=== PATIENT | female | born 1950 | race Caucasian/White ===

== ENCOUNTER 2017-02-23 21:14 | Inpatient (IN) | payer MEDICARE, OTHER ==
[2017-02-23] MEDS ORDERED: PHARMACY COMMUNICATION ORDER MC NR (22:30)
--- NOTE | 2017-02-23 22:42 | PDOC CONSULTATION ---
History of Present Illness Admission Date/PCP: 02/23/17 21:14 GANGA TICODHRUVJil Patient complains of: Lower abdominal pain History of Present Illness: YENI IBRAHIM is a 66 year old female With multiple abdominal surgeries for recurrent incisional hernias the last one about 15 years ago with mesh. Patient has noticed in the last several days persistent burning type of abdominal pain in the lower left abdomen. She denies any nausea and vomiting. In fact she has been eating well. She feels slightly distended and she has been experiencing normal bowel movements. Her last bowel movement being earlier this morning. She is still passing gas. Patient was recently diagnosed with right arm melanoma. Has not had definitive treatment yet. Past Medical History Cardiac Medical History: Reports: None Pulmonary Medical History: Reports: None Endocrine Medical History: Reports: Diabetes Mellitus Type 2 Skin History Note: Recently diagnosed melanoma. Of the right upper arm. Past Surgical History Past Surgical History: Reports: Cholecystectomy, Other - At least 4 abdominal hernia repairs last one with mesh. Social History Smoking Status: Current Every Day Smoker Frequency of Alcohol Use: None Family History Parental Family History Reviewed: No Children Family History Reviewed: No Sibling(s) Family History Reviewed.: No Physical Exam Vital Signs: Temp Pulse Resp BP Pulse Ox 98.8 F 103 H 20 142/80 H 97 02/23/17 21:45 02/23/17 21:45 02/23/17 21:45 02/23/17 21:45 02/23/17 21:45 Intake & Output 02/22/17 02/23/17 02/24/17 06:59 06:59 06:59 Weight 122.2 kg General appearance: PRESENT: no acute distress, cooperative Neck exam: PRESENT: other - Nontender with no palpable abnormal masses Respiratory exam: PRESENT: clear to auscultation freedom Cardiovascular exam: PRESENT: RRR GI/Abdominal exam: PRESENT: other - morbidly obese. Difficult to tell whether she is distended. Upper abdomen is soft. There is firmness and fullness in the left lower abdomen, nonreducible. There is tenderness but no peritoneal signs. There is no erythema and there is no induration. I do not appreciate a hernia on the right lower abdomen although the exam is very difficult due to her body habitus. She has a midline abdominal scar that is well-healed. Neurological exam: PRESENT: alert, altered, awake, oriented to person, oriented to place, oriented to time, oriented to situation Psychiatric exam: PRESENT: appropriate affect Skin exam: PRESENT: normal color, warm Results Status: Imported from PACS Assessment & Plan - Diagnosis (1) Incisional hernia, incarcerated Is this a current diagnosis for this admission?: YesPlan: Patient has had symptoms for [address] scan demonstrates no evidence of intestinal compromise but there is evidence of partial small bowel obstruction related with her incarcerated incisional hernia. There are 2 incisional hernias on either side of her mesh. She does not have obstructive symptoms however. We will plan to make her n.p.o., NG tube decompression, IV fluids, preoperative workup with labs and EKG. In light of the complexity of her recurrent incisional hernias, will need to consider transfer to a tertiary care hospital for repair.
[2017-02-23 22:59] LABS: ABSOLUTE BASOPHILS # (AUTO) 0.1 10^3/uL (0.0-0.2); ABSOLUTE EOSINOPHILS # (AUTO) 0.1 10^3/uL (0.0-0.6); ABSOLUTE LYMPHOCYTES (AUTO) 1.7 10^3/uL (0.5-4.7); ABSOLUTE MONOCYTES (AUTO) 1.1 10^3/uL (0.1-1.4); ABSOLUTE NEUT (AUTO) 9.4 10^3/uL (1.7-8.2); BASOPHILS % (AUTO) 0.5 % (0-2); EOSINOPHILS % (AUTO) 0.7 % (0-6); HEMATOCRIT 39.1 % (36.0-47.0); HEMOGLOBIN 13.1 g/dL (12.0-15.5); HGB HCT DIFFERENCE 0.2; LYMPHOCYTES % (AUTO) 13.5 % (13-45); MEAN CORPUSCULAR HEMOGLOBIN 29.6 pg (27.0-33.4); MEAN CORPUSCULAR HGB CONC 33.6 g/dL (32.0-36.0); MEAN CORPUSCULAR VOLUME 88 fl (80-97); MONOCYTES % (AUTO) 9.2 % (3-13); RED BLOOD COUNT 4.43 10^6/uL (3.72-5.28); RED CELL DISTRIBUTION WIDTH 12.8 % (11.5-14.0); SEGMENTED NEUTROPHILS % (AUTO) 76.1 % (42-78); WHITE BLOOD COUNT 12.3 10^3/uL (4.0-10.5)
[2017-02-23 23:07] LABS: ALANINE AMINOTRANSFERASE 35 U/L (9-52); ALBUMIN 3.3 g/dL (3.5-5.0); ALKALINE PHOSPHATASE 87 U/L (38-126); ANION GAP 11 (5-19); ASPARTATE AMINO TRANSFERASE 20 U/L (14-36); BILIRUBIN,DIRECT 0.4 mg/dL (0.0-0.4); BILIRUBIN,TOTAL 1.1 mg/dL (0.2-1.3); BLOOD UREA NITROGEN 24 mg/dL (7-20); CALCIUM 8.8 mg/dL (8.4-10.2); CARBON DIOXIDE 25 mmol/L (22-30); CHLORIDE 100 mmol/L (98-107); CREATININE RESULT 0.89 mg/dL (0.52-1.25); GLUCOSE 160 mg/dL (75-110); POTASSIUM 3.8 mmol/L (3.6-5.0); SODIUM 136.1 mmol/L (137-145); TOTAL PROTEIN 6.1 g/dL (6.3-8.2)
--- NOTE | 2017-02-24 00:12 | EKG REPORT ---
SEVERITY:- ABNORMAL ECG - SINUS RHYTHM PROBABLE LEFT ATRIAL ABNORMALITY LAD, CONSIDER LAFB OR INFERIOR INFARCT ANTERIOR INFARCT, AGE INDETERMINATE : Confirmed by: Helena Vazquez 24-Feb-2017 00:11:58
[2017-02-24] MEDS: NORMAL SALINE 1000 ML 1,000 ML IV PRN ×2 (01:44→13:48)
--- NOTE | 2017-02-24 01:44 | RADIOLOGY REPORT (SQ) ---
EXAM DESCRIPTION: KUB/ABDOMEN (SINGLE VIEW) COMPLETED DATE/TIME: 02/24/2017 12:43 am REASON FOR STUDY: Check Placement of NG Tube COMPARISON: None. NUMBER OF VIEWS: One view. TECHNIQUE: Supine radiographic image of the abdomen acquired. LIMITATIONS: None. FINDINGS: BOWEL GAS PATTERN: 5.3 cm diameter likely small bowel dilation of the mid abdomen consiste nt with CT from 1 day ago. CALCIFICATIONS: No suspicious calcifications. SOFT TISSUES: No gross mass or suggestion of organomegaly. HARDWARE: NG tube tip appears adequate with its tip overlying the left upper abdominal quadrant/ stom ach and proximal port at the level of the gastroesophageal junction ; consider 4 cm advancement. BONES: No acute fracture. No worrisome bone lesions. OTHER: Small left basilar atelectasis or scar. IMPRESSION: NG tube tip appears adequate with its tip overlying the left upper abdominal quadrant/ s tomach and proximal port at the level of the gastroesophageal junction ; consider 4 cm advancement. Moderate small bowel dilation/obstruction pattern persists. TECHNICAL DOCUMENTATION: JOB ID: [id number] [employer]- All Rights Reserved
[2017-02-24] MEDS: CEFAZOLIN 1 GM/D5W RTU 1 GM/50 ML RTUPB IV SCH ×3 (02:19→19:38)
[2017-02-24 04:59] LABS: HEMOGLOBIN 13.1 g/dL (12.0-15.5); HGB HCT DIFFERENCE -0.7; MEAN CORPUSCULAR HEMOGLOBIN 29.1 pg (27.0-33.4); MEAN CORPUSCULAR HGB CONC 32.9 g/dL (32.0-36.0); MEAN CORPUSCULAR VOLUME 88 fl (80-97); RED BLOOD COUNT 4.52 10^6/uL (3.72-5.28); RED CELL DISTRIBUTION WIDTH 12.9 % (11.5-14.0); WHITE BLOOD COUNT 12.8 10^3/uL (4.0-10.5)
[2017-02-24 05:15] LABS: ANION GAP 12 (5-19); BLOOD UREA NITROGEN 23 mg/dL (7-20); CALCIUM 8.7 mg/dL (8.4-10.2); CARBON DIOXIDE 26 mmol/L (22-30); CHLORIDE 101 mmol/L (98-107); CREATININE RESULT 0.93 mg/dL (0.52-1.25); GLUCOSE 151 mg/dL (75-110); SODIUM 139.4 mmol/L (137-145)
--- NOTE | 2017-02-24 08:02 | RADIOLOGY REPORT (SQ) ---
EXAM DESCRIPTION: ABDOMEN 2 VIEWS COMPLETED DATE/TIME: 02/24/2017 7:31 am REASON FOR STUDY: f/u psbo COMPARISON: CT, 02/23/2017. CR, upper abdomen, 02/24/2017. NUMBER OF VIEWS: Two views. TECHNIQUE: Supine and erect/decubitus radiographic images of the abdomen acquired. LIMITATIONS: None. FINDINGS: FREE AIR: None. No abnormal gas collections. LUNG BASES: Clear. BOWEL GAS PATTERN: Moderate small bowel dilation measures up to 6.5 cm in the right paracentral abdom en, moderate stacking and air-fluid levels of the small bowel, and intraluminal contrast within a nor mal caliber colon presumably administered only from the CT examination 1 day prior consistent with pa rtial small bowel obstruction in this patient with known ventral hernia. CALCIFICATIONS: No suspicious calcifications. SOFT TISSUES: No gross mass or suggestion of organomegaly. HARDWARE: Left paracentral clips. Adequate appearing nasogastric tube. BONES: No acute fracture. No worrisome bone lesions. OTHER: No other significant finding. IMPRESSION: Partial small bowel obstruction pattern. NG tube. TECHNICAL DOCUMENTATION: JOB ID: [id number]- All Rights Reserved
--- NOTE | 2017-02-24 08:36 | PDOC H&P ---
History of Present Illness Admission Date/PCP: 02/23/17 21:14 GANGA BLANC History of Present Illness: YENI IBRAHIM is a 66 year old female known to my practice who presented to the office yesterday with complain of left lower quadrant abdominal pain that started several days prior to her presentation. She denied any nausea or vomiting. No diarrhea or constipation. No significant similar symptoms in recent time. She was treated for Helicobacter pylori in the past. Her initial examination was significant for LLQ tenderness with some degree of focal guarding. Her CBC with differential revealed leukocytosis and concern for possible diverticulitis. she was started on oral Augmentin empiric coverage with request for abdominal / pelvic CT scan that revealed multiple hernia and suggested partial small bowel obstruction. In view of findings she was advised hospitalization for further evaluation and management. Since admission, she was seen in consultation by surgicalist and has been managed conservatively with bowel decompression and NPO status. In view of her recurrent hernia around a prior large incisional hernia, bilateral and other comorbidities including recently diagnosed right arm melanoma pending definitive treatment, it is advised that she should be transfer to tertiary center for surgical intervention. Past Medical History Cardiac Medical History: Reports: None Pulmonary Medical History: Reports: None Endocrine Medical History: Reports: Diabetes Mellitus Type 2 Past Surgical History Past Surgical History: Reports: Cholecystectomy, Other - At least 4 abdominal hernia repairs last one with mesh. Social History Smoking Status: Current Every Day Smoker Frequency of Alcohol Use: None Hx Recreational Drug Use: No Family History Parental Family History Reviewed: Yes Children Family History Reviewed: Yes Sibling(s) Family History Reviewed.: Yes Medication/Allergy Allergies/Adverse Reactions: No Known Allergies Allergy (Unverified 02/24/17 01:21) Review of Systems Constitutional: ABSENT: chills, fever(s), headache(s), weight gain, weight loss Eyes: ABSENT: visual disturbances Ears: ABSENT: hearing changes Nose, Mouth, and Throat: ABSENT: as per HPI, headache(s), mouth pain, sore throat, vertigo, other Cardiovascular: ABSENT: chest pain, dyspnea on exertion, edema, orthropnea, palpitations Gastrointestinal: PRESENT: abdominal pain. ABSENT: as per HPI, bloating, coffee ground emesis, constipation, diarrhea, dysphagia, heartburn, hematemesis , hematochezia, melena, nausea, vomiting, other Genitourinary: ABSENT: dysuria, hematuria Musculoskeletal: ABSENT: joint swelling Integumentary: PRESENT: lesions - right arm excisional biopsy site of recently diagnosed melanoma lesion Neurological: ABSENT: abnormal gait, abnormal speech, confusion, dizziness, focal weakness, syncope Psychiatric: ABSENT: anxiety, depression, homidical ideation, suicidal ideation Endocrine: ABSENT: cold intolerance, heat intolerance, menstrual abnormalities, polydipsia, polyuria Hematologic/Lymphatic: ABSENT: easy bleeding, easy bruising, lymphadenopathy Allergic/Immunologic: ABSENT: seasonal rhinorrhea Physical Exam Vital Signs: Temp Pulse Resp BP Pulse Ox 98.2 F 97 20 126/75 H 91 L 02/24/17 05:00 02/24/17 07:00 02/24/17 05:00 02/24/17 05:00 02/24/17 05:00 Intake & Output 02/23/17 02/24/17 02/25/17 06:59 06:59 06:59 Intake Total 50 Output Total 650 Balance -600 Weight 122.2 kg General appearance: PRESENT: no acute distress - with NG tube in situ, morbidly obese Head exam: PRESENT: atraumatic, normocephalic Eye exam: PRESENT: conjunctiva pink, EOMI, PERRLA. ABSENT: scleral icterus Ear exam: PRESENT: normal external ear exam Mouth exam: PRESENT: moist, neck supple, tongue midline, other - NG tube in situ Throat exam: ABSENT: post pharyngeal erythema, tonsillar erythema, tonsillar exudate, tonsillogmegaly, other Neck exam: PRESENT: full ROM. ABSENT: carotid bruit, JVD, lymphadenopathy, thyromegaly Respiratory exam: PRESENT: clear to auscultation freedom Cardiovascular exam: PRESENT: RRR. ABSENT: diastolic murmur, rubs, systolic murmur Pulses: PRESENT: normal dorsalis pedis pul, +2 pedal pulses bilateral Vascular exam: PRESENT: normal capillary refill GI/Abdominal exam: PRESENT: hernia. ABSENT: ascites, diminished bowel sounds, distended, firm, guarding, hyperactive bowel sounds, hypoactive bowel sounds, mass, David's sign, normal bowel sounds, organolmegaly, rebound, rigid, soft, tenderness, other Rectal exam: PRESENT: deferred Extremities exam: ABSENT: pedal edema Musculoskeletal exam: PRESENT: deformity - related to joint involvement with arthritis Neurological exam: PRESENT: alert, awake, oriented to person, oriented to place , oriented to time, oriented to situation, CN II-XII grossly intact. ABSENT: motor sensory deficit Psychiatric exam: PRESENT: appropriate affect, normal mood. ABSENT: homicidal ideation, suicidal ideation Skin exam: PRESENT: dry, intact, warm, other - healing site of right arm excisional biopsy. ABSENT: cyanosis, rash Results Laboratory Results: 02/24/17 04:29 02/24/17 04:29 02/23/17 02/23/17 02/24/17 22:38 22:38 04:29 WBC 12.3 H 12.8 H RBC 4.43 4.52 Hgb 13.1 13.1 Hct 39.1 40.0 MCV 88 88 MCH 29.6 29.1 MCHC 33.6 32.9 RDW 12.8 12.9 Plt Count 223 244 Seg Neutrophils % 76.1 Lymphocytes % 13.5 Monocytes % 9.2 Eosinophils % 0.7 Basophils % 0.5 Absolute Neutrophils 9.4 H Absolute Lymphocytes 1.7 Absolute Monocytes 1.1 Absolute Eosinophils 0.1 Absolute Basophils 0.1 Sodium 136.1 L Potassium 3.8 Chloride 100 Carbon Dioxide 25 Anion Gap 11 BUN 24 H Creatinine 0.89 Est GFR ( Amer) > 60 Est GFR (Non-Af Amer) > 60 Glucose 160 H Calcium 8.8 Total Bilirubin 1.1 AST 20 ALT 35 Alkaline Phosphatase 87 Total Protein 6.1 L Albumin 3.3 L 02/24/17 04:29 WBC RBC Hgb Hct MCV MCH MCHC RDW Plt Count Seg Neutrophils % Lymphocytes % Monocytes % Eosinophils % Basophils % Absolute Neutrophils Absolute Lymphocytes Absolute Monocytes Absolute Eosinophils Absolute Basophils Sodium 139.4 Potassium 4.0 Chloride 101 Carbon Dioxide 26 Anion Gap 12 BUN 23 H Creatinine 0.93 Est GFR ( Amer) > 60 Est GFR (Non-Af Amer) > 60 Glucose 151 H Calcium 8.7 Total Bilirubin AST ALT Alkaline Phosphatase Total Protein Albumin Impressions: KUB X-Ray 02/23/17 22:21 IMPRESSION: NG tube tip appears adequate with its tip overlying the left upper abdominal quadrant/ stomach and proximal port at the level of the gastroesophageal junction ; consider 4 cm advancement. Moderate small bowel dilation/obstruction pattern persists. Abdomen X-Ray 02/24/17 06:00 IMPRESSION: Partial small bowel obstruction pattern. NG tube. Assessment & Plan - Diagnosis (1) Incisional hernia, incarcerated Is this a current diagnosis for this admission?: YesPlan: Continue conservative management with efforts at transfer to tertiary center. (2) Partial small bowel obstruction Is this a current diagnosis for this admission?: YesPlan: Continue conservative management with efforts at transfer to tertiary center. (3) Malignant melanoma Qualifiers: Melanoma location: upper extremity including shoulder Laterality: right Qualified Code(s): C43.61 - Malignant melanoma of right upper limb , including shoulder Is this a current diagnosis for this admission?: YesPlan: See admitting attending physician orders. (4) HTN (hypertension) Qualifiers: Hypertension type: essential hypertension Qualified Code(s): I10 - Essential (primary) hypertension Is this a current diagnosis for this admission?: YesPlan: See admitting attending physician orders. (5) HLD (hyperlipidemia) Qualifiers: Hyperlipidemia type: pure hypercholesterolemia Qualified Code(s): E78.00 - Pure hypercholesterolemia, unspecified; E78.0 - Pure hypercholesterolemia Is this a current diagnosis for this admission?: YesPlan: See admitting attending physician orders. (6) COPD (chronic obstructive pulmonary disease) Qualifiers: COPD type: unspecified COPD Qualified Code(s): J44.9 - Chronic obstructive pulmonary disease, unspecified Is this a current diagnosis for this admission?: YesPlan: See admitting attending physician orders. (7) Diabetes mellitus type 2 in obese Is this a current diagnosis for this admission?: YesPlan: See admitting attending physician orders. (8) PAUL (obstructive sleep apnea) Is this a current diagnosis for this admission?: YesPlan: See admitting attending physician orders. (9) Morbid obesity with BMI of 45.0-49.9, adult Is this a current diagnosis for this admission?: YesPlan: See admitting attending physician orders. - Time Time Spent: 50 to 70 Minutes Medications reviewed and adjusted accordingly: Yes Anticipated discharge: Tertiary Hospital Within: Other - Inpatient Certification Post Hospital Care: D/C or Transfer Summary - Plan Summary Plan Summary: Continue conservative management with efforts at transfer to tertiary center.
[2017-02-24] MEDS ORDERED: ENOXAPARIN SODIUM INJ 40 MG/0.4 ML DISP.SYRIN SUBCUT SCH (10:00)
--- NOTE | 2017-02-24 10:12 | PROGRESS NOTE E ---
Progress Note NAME: YENI IBRAHIM : 1950 AGE: 66Y DATE: 02/24/2017 ROOM: 415 SUBJECTIVE: The patient's abdominal pains appear to have subsided. The NG drainage is only about 150 mL since last night. The abdomen is soft and practically nontender. ASSESSMENT AND PLAN: Unfortunately, this is the fourth recurrence of her hernia in this morbidly obese patient. CAT scan was reviewed with Dr. Rodriguez and we both agreed that the best place for this patient will be in a tertiary care facility. I discussed it with her medical attending, Dr. Aquino, who will make arrangements for the patient to be transferred to [facility]. DICTATING PHYSICIAN: CARLOS STONE M.D. [id number] HARSHALY#: [id number] ID: [id number] JOB#: [id number] ACCT: [id number] cc: >
--- NOTE | 2017-02-24 13:08 | PDOC TRANSFER SUMMARY ---
General Admission Date/PCP: 02/23/17 21:14 GANGA BLANC Admission Date: 02/23/17 Transfer Date: 02/24/17 Accepting Facility: [facility] Accepting Physician: Dr. Esteban Resuscitation Status: Full Code - Transfer Diagnosis (1) Incisional hernia, incarcerated Is this a current diagnosis for this admission?: Yes (2) Partial small bowel obstruction Is this a current diagnosis for this admission?: Yes (3) Malignant melanoma Is this a current diagnosis for this admission?: Yes (4) HTN (hypertension) Is this a current diagnosis for this admission?: Yes (5) HLD (hyperlipidemia) Is this a current diagnosis for this admission?: Yes (6) COPD (chronic obstructive pulmonary disease) Is this a current diagnosis for this admission?: Yes (7) Diabetes mellitus type 2 in obese Is this a current diagnosis for this admission?: Yes (8) PAUL (obstructive sleep apnea) Is this a current diagnosis for this admission?: Yes (9) Morbid obesity with BMI of 45.0-49.9, adult Is this a current diagnosis for this admission?: Yes - Transfer Medications Home Medications: Amox Tr/Potassium Clavulanate [Augmentin 875-125 mg Tablet] 1 tab PO Q12 Aspirin [Aspirin EC] 81 mg PO DAILY 02/24/17 Atorvastatin Calcium [Lipitor 80 mg Tablet] 80 mg PO DAILY 02/24/17 Benzonatate [Tessalon Perle 100 mg Capsule] 100 mg PO TID 02/24/17 Cholecalciferol (Vitamin D3) [Vitamin D3] 8,000 units PO DAILY 02/24/17 Cyanocobalamin (Vitamin B-12) [B-12] 500 mcg PO DAILY 02/24/17 Gabapentin [Neurontin 300 mg Capsule] 300 mg PO Q8 02/24/17 Guaifenesin/Codeine Phosphate [Codeine-Guaifen 10-100 mg/5 ml] 10 ml PO Q4HP PRN 02/24/17 Hydrochlorothiazide 25 mg PO DAILY 02/24/17 Insulin Glargine,Hum.rec.anlog [Lantus Solostar] 36 units SUBCUT QHS 02/24/17 Lisinopril [Prinivil 5 mg Tablet] 5 mg PO DAILY 02/24/17 Loratadine [Claritin 10 mg Tablet] 10 mg PO QAM 02/24/17 Montelukast Sodium [Singulair 10 mg Tablet] 10 mg PO QHS 02/24/17 [place]-3 Fatty Acids/Fish Oil [Fish Oil 1,000 mg Capsule] 1,000 mg PO DAILY 02/24 Sitagliptin Phos/Metformin HCl [Janumet 50-1,000 mg Tablet] 1 tab PO BID Tiotropium Hammond [Spiriva Handihaler 18 mcg/dose (30 Dose)] 1 cap IH DAILY Umeclidinium Brm/Vilanterol Tr [Anoro Ellipta 62.5-25 Mcg INH] 1 puff IH DAILY 02/24/17 Vitamin E (Dl, Acetate) [Vitamin E 400 Unit Capsule] 400 units PO DAILY Transfer Medications: Current Medications Atorvastatin Calcium (Lipitor 20 Mg Tablet) 20 mg NG QHS [facility] Stop: 03/26/17 21:59 Enoxaparin Sodium (Lovenox Inj 40 Mg/0.4 Ml Disp.Syrin) 40 mg SUBCUT DAILY MARIA R Stop: 03/26/17 09:59 Last Admin: 02/24/17 10:03 Dose: 40 mg Cefazolin Sodium/Dextrose (Ancef Rtu 1 Gm/D5w 50 Ml Premix Bag) 1 gm in 50 mls @ 100 mls/hr IV Q8A MARIA R Stop: 03/03/17 01:59 Last Admin: 02/24/17 10:03 Dose: 50 ml Sodium Chloride (Nacl 0.9% 1000 Ml Iv Soln) 1,000 mls @ 120 mls/hr IV CONTINUOUS PRN PRN Reason: THIS MED IS NOT "PRN" Stop: 03/25/17 22:22 Last Admin: 02/24/17 01:44 Dose: 1,000 ml Insulin Glargine (Lantus Insulin Inj 300 Unit/3 Ml Pen) 36 unit SUBCUT QHS [facility] Stop: 03/26/17 21:59 Lansoprazole (Prevacid 30 Mg Odt Tablet) 30 mg NG QHS [facility] Stop: 03/26/17 21:59 Loratadine (Claritin 10 Mg Tablet) 10 mg NG QHS [facility] Stop: 03/26/17 21:59 Pharmacy Profile Note (Medication Communication Order) 1 each .NOTICE NR Stop: 03/25/17 22:29 - Allergies Allergies/Adverse Reactions: No Known Allergies Allergy (Unverified 02/24/17 01:21) - Diet/Activity Discharge Diet: Other (Comments) - NPO Hospital Course Hospital Course: Patient was admitted for abdominal pain and CT Abdomen and Pelvis with contrast confirmed partial small bowel obstruction in incarcerated hernia, prior bilateral ventral incisional hernias. She was seen in consultation by surgicalist team with recommendation for tertiary transfer. Patient has been accepted to Dr Esteban's service. Also, there is issue of right arm melanoma that need further definitive surgical intervention. Please see accompanying H&P and radiographic imaging for further information. Physical Exam Vital Signs: Temp Pulse Resp BP Pulse Ox 98.2 F 98 16 129/75 H 95 02/24/17 08:35 02/24/17 08:35 02/24/17 08:35 02/24/17 08:35 02/24/17 08:35 Intake & Output 02/23/17 02/24/17 02/25/17 06:59 06:59 06:59 Intake Total 50 Output Total 650 Balance -600 Weight 122.2 kg General appearance: PRESENT: no acute distress - with NG tube in situ, morbidly obese Head exam: PRESENT: atraumatic, normocephalic Eye exam: PRESENT: conjunctiva pink, EOMI, PERRLA. ABSENT: scleral icterus Ear exam: PRESENT: normal external ear exam Mouth exam: PRESENT: moist, neck supple, tongue midline, other - NG tube in situ Throat exam: ABSENT: post pharyngeal erythema, tonsillar erythema, tonsillar exudate, tonsillogmegaly, other Neck exam: PRESENT: full ROM. ABSENT: carotid bruit, JVD, lymphadenopathy, thyromegaly Respiratory exam: PRESENT: clear to auscultation freedom Cardiovascular exam: PRESENT: RRR. ABSENT: diastolic murmur, rubs, systolic murmur Pulses: PRESENT: normal dorsalis pedis pul, +2 pedal pulses bilateral Vascular exam: PRESENT: normal capillary refill GI/Abdominal exam: PRESENT: hernia. ABSENT: ascites, diminished bowel sounds, distended, firm, guarding, hyperactive bowel sounds, hypoactive bowel sounds, mass, David's sign, normal bowel sounds, organomegaly, rebound, rigid, soft, tenderness, other Rectal exam: PRESENT: deferred Extremities exam: ABSENT: pedal edema Musculoskeletal exam: PRESENT: deformity - related to joint involvement with arthritis Neurological exam: PRESENT: alert, awake, oriented to person, oriented to place , oriented to time, oriented to situation, CN II-XII grossly intact. ABSENT: motor sensory deficit Psychiatric exam: PRESENT: appropriate affect, normal mood. ABSENT: homicidal ideation, suicidal ideation Skin exam: PRESENT: dry, intact, warm, other - healing site of right arm excisional biopsy. ABSENT: cyanosis, rash Results Laboratory Results: 02/24/17 04:29 02/24/17 04:29 02/23/17 02/23/17 02/24/17 22:38 22:38 04:29 WBC 12.3 H 12.8 H RBC 4.43 4.52 Hgb 13.1 13.1 Hct 39.1 40.0 MCV 88 88 MCH 29.6 29.1 MCHC 33.6 32.9 RDW 12.8 12.9 Plt Count 223 244 Seg Neutrophils % 76.1 Lymphocytes % 13.5 Monocytes % 9.2 Eosinophils % 0.7 Basophils % 0.5 Absolute Neutrophils 9.4 H Absolute Lymphocytes 1.7 Absolute Monocytes 1.1 Absolute Eosinophils 0.1 Absolute Basophils 0.1 Sodium 136.1 L Potassium 3.8 Chloride 100 Carbon Dioxide 25 Anion Gap 11 BUN 24 H Creatinine 0.89 Est GFR ( Amer) > 60 Est GFR (Non-Af Amer) > 60 Glucose 160 H Calcium 8.8 Total Bilirubin 1.1 AST 20 ALT 35 Alkaline Phosphatase 87 Total Protein 6.1 L Albumin 3.3 L 02/24/17 04:29 WBC RBC Hgb Hct MCV MCH MCHC RDW Plt Count Seg Neutrophils % Lymphocytes % Monocytes % Eosinophils % Basophils % Absolute Neutrophils Absolute Lymphocytes Absolute Monocytes Absolute Eosinophils Absolute Basophils Sodium 139.4 Potassium 4.0 Chloride 101 Carbon Dioxide 26 Anion Gap 12 BUN 23 H Creatinine 0.93 Est GFR ( Amer) > 60 Est GFR (Non-Af Amer) > 60 Glucose 151 H Calcium 8.7 Total Bilirubin AST ALT Alkaline Phosphatase Total Protein Albumin Impressions: KUB X-Ray 02/23/17 22:21 IMPRESSION: NG tube tip appears adequate with its tip overlying the left upper abdominal quadrant/ stomach and proximal port at the level of the gastroesophageal junction ; consider 4 cm advancement. Moderate small bowel dilation/obstruction pattern persists. Abdomen X-Ray 02/24/17 06:00 IMPRESSION: Partial small bowel obstruction pattern. NG tube. Plan Discharge Plan: Transfer to [facility] when bed is made available.
[2017-02-24 15:58] VITALS: BP 140/69
[2017-02-24] MEDS ORDERED: LORATADINE 10 MG TABLET NG SCH (22:00)
[2017-02-24] MEDS ORDERED: INSULIN GLARGINE,HUM.REC.ANLOG 300 UNIT/3 ML INSULN.PEN SUBCUT SCH (22:00)
[2017-02-24] MEDS ORDERED: ATORVASTATIN CALCIUM 20 MG TABLET NG SCH (22:00)
[2017-02-24] MEDS ORDERED: LANSOPRAZOLE 30 MG TAB.RAP.DR NG SCH (22:00)
== END 2017-02-24 19:15 | disposition short-term general hospital (02) | DRG 394 ==
LOC: 4N 21:14
PROVIDERS: ADMIT Internal Medicine Geriatric Medicine; ATTEND Internal Medicine Geriatric Medicine
PROC: 0D9670Z Drainage of Stomach with Drainage Device, Via Natural or Artificial Opening (ICD-10-PCS; principal; 2017-02-23)
DX: K43.0 Incisional hernia with obstruction, without gangrene (principal); Z68.42 Body mass index [BMI] 45.0-49.9, adult; C43.61 Malignant melanoma of right upper limb, including shoulder; I10 Essential (primary) hypertension; E11.9 Type 2 diabetes mellitus without complications; E78.5 Hyperlipidemia, unspecified; E78.00 Pure hypercholesterolemia, unspecified; J44.9 Chronic obstructive pulmonary disease, unspecified; G47.33 Obstructive sleep apnea (adult) (pediatric); E66.01 Morbid (severe) obesity due to excess calories; Z79.899 Other long term (current) drug therapy; Z79.82 Long term (current) use of aspirin; F17.200 Nicotine dependence, unspecified, uncomplicated; Z90.49 Acquired absence of other specified parts of digestive tract
CPT/HCPCS: 36415; 74000; 74020; 74177; 80048; 80053; 82565; 82962; 85025; 85027; 87040; 93005; 93010; J0690; J1650; J1815; J7030

== ENCOUNTER → 2017-02-23 | Outpatient (CLI) | payer MEDICARE, OTHER ==
--- NOTE | 2017-02-23 18:56 | RADIOLOGY REPORT (SQ) ---
EXAM DESCRIPTION: CT ABD/PELVIS WITH IV ORAL COMPLETED DATE/TIME: 02/23/2017 6:38 pm REASON FOR STUDY: ABDOMINAL PAIN COMPARISON: None. TECHNIQUE: CT scan of the abdomen and pelvis performed using helical scanning technique with dynamic intravenous contrast injection. Oral contrast. Images reviewed with lung, soft tissue, and bone win dows. Reconstructed coronal and sagittal MPR images reviewed. Delayed images for evaluation of the ur inary system also acquired. All images stored on PACS. All CT scanners at this facility use dose modulation, iterative reconstruction, and/or weight based d osing when appropriate to reduce radiation dose to as low as reasonably achievable (ALARA). [facility]: Dose Right [facility]: CareDose [facility]: Dose Right [facility]: Teradose 4D [facility]: Projjix CONTRAST TYPE AND DOSE: 100mL Isovue 370- low osmolar. RENAL FUNCTION: Creatinine 1.0 RADIATION DOSE: 50.80mGy. LIMITATIONS: None. FINDINGS: LOWER CHEST: No significant findings. No nodules or infiltrates. LIVER: Normal size. No masses or dilated ducts. SPLEEN: Normal size. No focal lesions. PANCREAS: No masses. No significant calcifications. No adjacent inflammation or peripancreatic fluid collections. Pancreatic duct not dilated. GALLBLADDER: Surgically absent. ADRENAL GLANDS: No significant masses or asymmetry. RIGHT KIDNEY AND URETER: No solid masses. Several cysts are present. No significant calcifications . No hydronephrosis or hydroureter. LEFT KIDNEY AND URETER: No solid masses. No significant calcifications. No hydronephrosis or hydr oureter. AORTA AND VESSELS: No aneurysm. No dissection. Renal arteries, SMA, celiac without stenosis. RETROPERITONEUM: No retroperitoneal adenopathy, hemorrhage or masses. BOWEL AND PERITONEAL CAVITY: There are some distended loops of small bowel. A transition point may b e at the point of the left ventral hernia APPENDIX: Normal. PELVIS: No mass or free fluid. Normal bladder. ABDOMINAL WALL: There is a 7 cm ventral hernia on the left side at the level of the upper pelvis that contains nondistended bowel loops. A 2nd, smaller ventral hernia is contain on the right side sligh tly inferiorly. This contains a nondistended loop of bowel. BONES: No significant or acute findings. OTHER: No other significant finding. IMPRESSION: There appears to be a partial small bowel obstruction that may relate to a prominent emerson tral hernia on the left. A 2nd, slightly smaller ventral hernia is present on the right side. TECHNICAL DOCUMENTATION: JOB ID: [id number] Quality ID # [id number]: Final reports with documentation of one or more dose reduction techniques (e.g., Au tomated exposure control, adjustment of the mA and/or kV according to patient size, use of iterative reconstruction technique) 2010 [employer]- All Rights Reserved
== END ==
LOC: RAD 15:08
PROVIDERS: ATTEND Internal Medicine Geriatric Medicine
DX: R10.9 Unspecified abdominal pain (principal)
CPT/HCPCS: 74177; 82565

== ENCOUNTER 2017-10-09 17:47 | Emergency (ER) | payer MEDICARE, OTHER ==
[2017-10-09] MEDS ORDERED: NORMAL SALINE 1000 ML 1,000 ML IV ONE (18:16)
[2017-10-09] MEDS ORDERED: PIPERACILLIN/TAZOBACTAM 3.375 GM VIAL IV ONE (18:24)
[2017-10-09] MEDS ORDERED: VANCOMYCIN HCL INJ 1000 MG VIAL IV ONE (18:24)
--- NOTE | 2017-10-09 18:24 | ER Document Report ---
ED General - General Stated Complaint: ALTERD MENTAL STATUS Time Seen by Provider: 10/09/17 18:04 Cannot obtain history due to: Altered mental status Notes: This is a 67-year-old lady presented with altered mental status. Brought in by ambulance at the request of family. Family is not present to provide history. She has a history of COPD and received treatment on the way here including albuterol nebs and steroids. She has been confused for a couple of days. She also has history of bowel obstruction and possible abdominal hernia. No further information is available. TRAVEL OUTSIDE OF THE [place] IN LAST 30 DAYS: No - Related Data Allergies/Adverse Reactions: No Known Allergies Allergy (Unverified 02/24/17 01:21) Past Medical History - General Cannot obtain history due to: Altered mental status - Social History Smoking Status: Former Smoker Family History: None Endocrine Medical History: Reports: Hx Diabetes Mellitus Type 2 Past Surgical History: Reports: Hx Cholecystectomy, Other - At least 4 abdominal hernia repairs last one with mesh. Review of Systems - Review of Systems Notes: REVIEW OF SYSTEMS PHYSICAL EXAMINATION General: Obese altered ill-appearing Head: Atraumatic, normocephalic ENT: Mouth normal, oropharynx dry, no exudates or tonsillar enlargement Eyes: Conjunctiva normal, pupils equal, lids normal Neck: No JVD, supple, no guarding CVS: Normal rate, regular rhythm, no murmurs Resp: Tachypneic with no respiratory distress bilateral wheezing and distant breath sounds bilaterally. GI: Markedly obese abdomen. Firm discoloration, erythema on the left abdomen, cannot feel hernia but patient is tender. Ext: No deformities, no edema, normal range of motion in upper and lower ext Back: No CVA or midline TTP Skin: No rash, warm Lymphatic: No lymphadeopathy noted Neuro: Repetitive questioning not oriented to place or time. Moves all extremity's face symmetric. -: Yes ROS unobtainable due to patient's medical condition Physical Exam - Vital signs Vitals: Resp BP Pulse Ox 22 H 109/75 95 10/09/17 17:57 10/09/17 17:57 10/09/17 17:57 Course - Re-evaluation Re-evalutation: 10/09/17 18:22 This 67-year-old female brought in with altered mental status. She has many medical problems including COPD and a complicated abdominal history. On exam she is confused, slightly wheezy, and has a firm abdominal mass possibly a hernia. Differential includes abdominal wall cellulitis, abdominal wall abscess, incarcerated hernia, sepsis, dehydration, COPD with hypercapnia. Patient will be started on IV fluids. I will obtain studies including VBG lactate and blood cultures urine culture basic labs and I will CT her abdomen. 10/09/17 18:24 Update: Rectal temperature obtained is 100.8, clinching the diagnosis of sepsis. Ordered Zosyn and vancomycin. We will continue searching for etiology. 10/09/17 19:43 Lactate is 3. White count is normal but there is a slight bandemia. Chemistry significant for acute kidney injury with elevated creatinine compared to prior visits, hypokalemia and signs of dehydration. I ordered a second 2 L of fluid so she will get up to 30 mL/kg. Her antibiotics are running. Her CT is pending , but her lungs and urine did not show a source for her sepsis. 10/09/17 20:[address], on my read, shows incarcerated abdominal wall hernia with possible pneumatosis versus per proximal bowel obstruction this is likely the cause of her sepsis. I spoke with Dr. Harkins who agreed to come into the ED and see the patient. I reassessed her. Her mental status is slightly improved capillary refill is 3 seconds peripherally, and her hemodynamic state improved. 10/09/17 22:[address] Harkins from surgery. He is concerned about the patient's requirement for open abdomen and surgical critical care. We consulted [facility] together who stated that they have no beds. I then called [facility]. Discussed with him. Patient was accepted by Dr. Rodríguez. I asked for rapid transportation because I am concerned about her impending bowel necrosis, and sepsis. 10/09/17 23:05 Reassessed. Vital signs stable. Chun here to pick the patient up. Stable for transfer. - Vital Signs Vital signs: Temp Pulse Resp BP Pulse Ox 100.8 F H 26 H 107/72 95 10/09/17 18:33 10/09/17 19:03 10/09/17 19:03 10/09/17 19:03 - Laboratory Result Diagrams: 10/09/17 18:15 10/09/17 18:15 Laboratory results interpreted by me: 10/09/17 10/09/17 10/09/17 18:10 18:15 18:15 Band Neutrophils % 2 L Lymphocytes % (Manual) 7 L Monocytes % (Manual) 14 H Potassium 3.1 L Chloride 97 L BUN 85 H Creatinine 1.85 H Est GFR ( Amer) 33 L Est GFR (Non-Af Amer) 27 L Glucose 192 H POC Glucose Lactic Acid Urine Blood SMALL H Urine Urobilinogen 2.0 H 10/09/17 10/09/17 18:15 21:04 Band Neutrophils % Lymphocytes % (Manual) Monocytes % (Manual) Potassium Chloride BUN Creatinine Est GFR ( Amer) Est GFR (Non-Af Amer) Glucose POC Glucose 196 H Lactic Acid 3.0 H Urine Blood Urine Urobilinogen - Diagnostic Test Radiology reviewed: Image reviewed, Reports reviewed Critical Care Note - Critical Care Note Total time excluding time spent on procedures (mins): 72 Comments: The above patient is critically ill. Not including procedures, but including direct re-evaluations, speaking with patient and/or consultants, interpreting results, and documenting, I spent the total amount of minute listed listed above on critical care time Discharge - Discharge Clinical Impression: Incarcerated hernia of abdominal cavity Condition: Critical Disposition: [facility] Referrals: GANGA BLNAC MD [Primary Care Provider] - Follow up as needed
--- NOTE | 2017-10-09 18:46 | RADIOLOGY REPORT (SQ) ---
EXAM DESCRIPTION: CHEST SINGLE VIEW COMPLETED DATE/TIME: 10/09/2017 6:36 pm REASON FOR STUDY: ama COMPARISON: None. EXAM PARAMETERS: NUMBER OF VIEWS: One view. TECHNIQUE: Single frontal radiographic view of the chest acquired. RADIATION DOSE: NA LIMITATIONS: None. FINDINGS: LUNGS AND PLEURA: No opacities, masses or pneumothorax. No pleural effusion. MEDIASTINUM AND HILAR STRUCTURES: No masses. Contour normal. HEART AND VASCULAR STRUCTURES: Heart normal in size. Normal vasculature. BONES: No acute findings. HARDWARE: None in the chest. OTHER: No other significant finding. IMPRESSION: NO ACUTE RADIOGRAPHIC FINDING IN THE CHEST. TECHNICAL DOCUMENTATION: JOB ID: [id number] [employer]- All Rights Reserved
[2017-10-09 18:56] LABS: AMORPHOUS SEDIMENT,URINE TRACE /HPF; APPEARANCE,URINE SLIGHTLY-CLOUDY; BILIRUBIN,URINE NEGATIVE (NEGATIVE); COLOR,URINE YELLOW; GLUCOSE, URINE NEGATIVE (NEGATIVE); KETONES,URINE NEGATIVE (NEGATIVE); LEUKOCYTE ESTERASE,URINE NEGATIVE (NEGATIVE); NITRITE,URINE NEGATIVE (NEGATIVE); PROTEIN,URINE NEGATIVE (NEGATIVE); URINE SPECIFIC GRAVITY 1.017
[2017-10-09 19:04] LABS: HEMATOCRIT 39.8 % (36.0-47.0); HEMOGLOBIN 13.4 g/dL (12.0-15.5); MEAN CORPUSCULAR HEMOGLOBIN 29.5 pg (27.0-33.4); MEAN CORPUSCULAR HGB CONC 33.7 g/dL (32.0-36.0); MEAN CORPUSCULAR VOLUME 88 fl (80-97); PLATELET COUNT 223 10^3/uL (150-450); RED BLOOD COUNT 4.54 10^6/uL (3.72-5.28); RED CELL DISTRIBUTION WIDTH 13.4 % (11.5-14.0); WHITE BLOOD COUNT 9.7 10^3/uL (4.0-10.5)
[2017-10-09] MEDS ORDERED: ONDANSETRON HCL INJ/PF 4 MG/2 ML SDV IV ONE (19:07)
[2017-10-09 19:20] LABS: ANION GAP 13 (5-19); BLOOD UREA NITROGEN 85 mg/dL (7-20); CALCIUM 8.5 mg/dL (8.4-10.2); CARBON DIOXIDE 29 mmol/L (22-30); CHLORIDE 97 mmol/L (98-107); GLUCOSE 192 mg/dL (75-110); POTASSIUM 3.1 mmol/L (3.6-5.0); SODIUM 138.9 mmol/L (137-145)
[2017-10-09 19:24] LABS: ABSOLUTE LYMPHOCYTES# (MANUAL) 0.7 10^3/uL (0.5-4.7); ABSOLUTE MONOCYTES # (MANUAL) 1.4 10^3/uL (0.1-1.4); ABSOLUTE NEUTROPHILS# (MANUAL) 7.7 10^3/uL (1.7-8.2); BAND NEUTROPHILS % (MANUAL) 2 % (3-5); BASOPHILS % (MANUAL) 0 % (0-2); EOSINOPHILS % (MANUAL) 0 % (0-6); LYMPHOCYTES % (MANUAL) 7 % (13-45); MONOCYTES % (MANUAL) 14 % (3-13); SEGMENTED NEUTROPHILS % (MAN) 77 % (42-78); TOTAL CELLS COUNTED 100
[2017-10-09 19:25] LABS: OVALOCYTES SLIGHT; PLATELET COMMENT ADEQUATE; POIKILOCYTOSIS SLIGHT; POLYCHROMASIA SLIGHT
[2017-10-09] MEDS ORDERED: POTASSI CL 20 MEQ/50 ML RIDER 20 MEQ/50 ML RTUPB IV SCH (19:42)
[2017-10-09] MEDS ORDERED: NORMAL SALINE 1000 ML 1,000 ML IV PRN (19:42)
--- NOTE | 2017-10-09 20:54 | RADIOLOGY REPORT (SQ) ---
EXAM DESCRIPTION: CT ABD/PELVIS WITH IV ONLY COMPLETED DATE/TIME: 10/09/2017 8:37 pm REASON FOR STUDY: LLQ abd wall hernia ?Incarc/caroline COMPARISON: 02/23/2017 TECHNIQUE: CT scan of the abdomen and pelvis performed using helical scanning technique with dynamic intravenous contrast injection. No oral contrast. Images reviewed with lung, soft tissue, and bone windows. Reconstructed coronal and sagittal MPR images reviewed. Delayed images for evaluation of the urinary system also acquired. All images stored on PACS. All CT scanners at this facility use dose modulation, iterative reconstruction, and/or weight based d osing when appropriate to reduce radiation dose to as low as reasonably achievable (ALARA). [facility]: Dose Right [facility]: CareDose [facility]: Dose Right [facility]: Teradose 4D [facility]: [email or web address] CONTRAST TYPE AND DOSE: contrast/concentration: Isovue 300.00 mg/ml; Total Contrast Delivered: 97.0 ml; Total Saline Delivered: 72.1 ml RENAL FUNCTION: Creatinine 1.85 RADIATION DOSE: CT Rad equipment meets quality standard of care and radiation dose reduction techniq ues were employed. CTDIvol: 20.8 - 21.1 mGy. DLP: 2587 mGy-cm.. LIMITATIONS: None. FINDINGS: LOWER CHEST: No significant findings. No nodules or infiltrates. LIVER: Normal size. No masses. No dilated ducts. SPLEEN: No masses PANCREAS: No masses. No significant calcifications. No adjacent inflammation or peripancreatic fluid collections. Pancreatic duct not dilated. GALLBLADDER: Surgically absent. ADRENAL GLANDS: No significant masses or asymmetry. RIGHT KIDNEY AND URETER: Stable cysts. No significant calcifications. No hydronephrosis or hydrou reter. LEFT KIDNEY AND URETER: Stable cysts. No significant calcifications. No hydronephrosis or hydrour eter. AORTA AND VESSELS: No aneurysm. No dissection. Renal arteries, SMA, celiac without stenosis. RETROPERITONEUM: No retroperitoneal adenopathy, hemorrhage or masses. BOWEL AND PERITONEAL CAVITY: There is ventral hernia on the left. Herniated obstructed bowel in the hernia. Hernia on the right contains nonobstructed bowel. APPENDIX: Not visualized. PELVIS: No mass. No free fluid. Normal bladder. ABDOMINAL WALL: There is a left-sided ventral hernia. There is obstruction of proximal bowel into th e hernia. Distal decompression. There is also a right-sided ventral hernia containing unobstructed bowel. BONES: No significant or acute findings. OTHER: No other significant finding. IMPRESSION: Small bowel obstruction secondary to obstructive bowel within a left-sided ventral herni a. There is also a right-sided ventral hernia containing nonobstructed bowel. TECHNICAL DOCUMENTATION: JOB ID: [id number] Quality ID # [id number]: Final reports with documentation of one or more dose reduction techniques (e.g., Au tomated exposure control, adjustment of the mA and/or kV according to patient size, use of iterative reconstruction technique) 2010 [employer]- All Rights Reserved
[2017-10-09 23:07] VITALS: BP 117/61
--- NOTE | 2017-10-10 07:58 | CONSULTATION REPORT E ---
Consultation Report NAME: YENI IBRAHIM : 1950 AGE: 67Y DATE: 10/09/2017 TO: MARY BALDERRAMA M.D. FROM: Jose David THOMPSON, Requesting Physician The patient seen at the request of Dr. Marquis. CHIEF COMPLAINT: Strangulated abdominal wall hernia. SUMMARY OF CONSULTATION: The patient is a 67-year-old, white female, morbidly obese, multiple comorbidities, active smoker, COPD, known incarcerated ventral wall hernia, who presents to the emergency department via ground rescue complaining of a 3-day history of abdominal pain, nausea, decreased bowel function. Her history provision is poor. She has had confusion for several days. Her or significant other is answering a number of the questions. She was evaluated in the emergency department where she was found to have significant abdominal wall erythema and tenderness over the known incarcerated abdominal wall hernia. Surgery was consulted. PAST MEDICAL/SURGICAL HISTORY: Can be found in History and Physical record and includes: 1. Morbid obesity. 2. Hypertension. 3. Smoking. 4. COPD. REVIEW OF SYSTEMS: Cannot be obtained due to patient's altered mentation. PHYSICAL EXAMINATION: GENERAL: Patient examined in the emergency department. Patient is lethargic, responds to some questions appropriately. She is morbidly obese. VITAL SIGNS: Temperature 100.8, heart rate 100, blood pressure 107/72, respirations 26, saturation 90%. HEENT: Skin is dry, dry mucous membranes. LUNGS: Wheezes bilaterally. EXTREMITIES: Right upper extremity significant for multiple scars consistent with previous melanoma surgery, axillary dissection. Lower extremities with moderate edema. ABDOMEN: Abdominal wall examined. Midline scar chronic; there is marked distention of the abdominal wall with edema, erythema to the left of midline in a splotchy distribution. LABORATORY DATA: Laboratory profile shows blood sugar of 196, bicarb 3, BUN and creatinine and 85 and 1.85. White blood cell count 9700, hemoglobin 13.4. CT scan of the abdomen and pelvis performed this evening without oral contrast and IV contrast only shows erythema of the anterior abdominal wall. Left lower wall with incarcerated, possibly strangulated loops of small bowel with obstruction and distal decompression; possible pneumatosis of the incarcerated small bowel. IMPRESSION: 1. ACUTE SEPSIS SECONDARY TO INCARCERATED AND LIKELY STRANGULATED SMALL BOWEL IN A CHRONIC LEFT LOWER QUADRANT VENTRAL HERNIA. 2. MORBID OBESITY. 3. SMOKING ABUSE. 4. HISTORY OF PREVIOUS ABDOMINAL WALL RECONSTRUCTION WITH MESH IN LATE 80. 5. ACUTE RENAL FAILURE. 6. HISTORY OF MELANOMA EXCISION. DISCUSSION/RECOMMENDATIONS: I have reviewed the patient's situation with Dr. Marquis in the emergency department. The patient is being resuscitated with fluid, Cancino catheter insertion, intravenous antibiotics, and potassium replacement. The patient will require exploratory surgery, including abdominal wall decompression, probable bowel resection, ICU stay, etc. Resources at [facility] are insufficient to adequately manage this patient. Of note, the patient was sent from [facility] to [facility] January 2017 for intended surgery, but the patient did not undergo operation at that time. The patient is worse today, with evolving sepsis and impending clinical deterioration. We have spoken with Dr. Pj Rodríguez, general surgeon at [facility], who has agreed to accept the patient in transfer of which we are most appreciative. Arrangements have been made to get her down there as soon as reasonably possible. Total time: 30 minutes. DICTATING PHYSICIAN: MARY BALDERRAMA M.D. [id number] PHY#: [id number] ID: [id number] JOB#: [id number] ACCT: [id number] cc:MARY BALDERRAMA M.D. >
--- NOTE | 2017-10-10 08:35 | EKG REPORT ---
SEVERITY:- ABNORMAL ECG - SINUS TACHYCARDIA LEFT ANTERIOR FASCICULAR BLOCK BORDERLINE T ABNORMALITIES, LATERAL LEADS : Confirmed by: Jesus Manuel Esquivel MD 10-Oct-2017 08:34:49
== END 2017-10-09 23:25 | disposition short-term general hospital (02) ==
LOC: ER 17:47
DX: K43.6 Other and unspecified ventral hernia with obstruction, without gangrene (principal); A41.9 Sepsis, unspecified organism; N17.9 Acute kidney failure, unspecified; E87.6 Hypokalemia; R41.0 Disorientation, unspecified; R06.82 Tachypnea, not elsewhere classified; E66.01 Morbid (severe) obesity due to excess calories; J44.9 Chronic obstructive pulmonary disease, unspecified; E11.9 Type 2 diabetes mellitus without complications; Z98.890 Other specified postprocedural states; Z90.49 Acquired absence of other specified parts of digestive tract; Z87.891 Personal history of nicotine dependence
CPT/HCPCS: 93005; 99291; 96361; 96375; 96365; 96366; 96368; 36415; 87040; 82962; 85025; 87077; 80048; 81001; 83605; 71045; 74177; 93010; J2405; J3480; J7030; J3370; J2543; 87186

== ENCOUNTER → 2017-11-05 | Outpatient (CLI) | payer MEDICARE, OTHER ==
--- NOTE | 2017-11-05 09:52 | RADIOLOGY REPORT (SQ) ---
EXAM DESCRIPTION: CT CHEST WITHOUT COMPLETED DATE/TIME: 11/05/2017 9:14 am REASON FOR STUDY: K56.609 UNSP INTESTNL OBST, UNSP TO PARTIAL VERSUS COMPLETE OBST R05 COUGH K56 .609 UNSP INTESTNL OBST, UNSP TO PARTIAL VERSUS COMPLE COMPARISON: None. TECHNIQUE: CT scan performed of the chest without intravenous contrast. Images reviewed with lung, soft tissue and bone windows. Reconstructed coronal and sagittal MPR images reviewed. All images st ored on PACS. All CT scanners at this facility use dose modulation, iterative reconstruction, and/or weight based d osing when appropriate to reduce radiation dose to as low as reasonably achievable (ALARA). [facility]: Dose Right [facility]: CareDose [facility]: Dose Right [facility]: Teradose 4D [facility]: [employer] RADIATION DOSE: mGy. LIMITATIONS: No technical limitations. FINDINGS: LUNGS AND PLEURA: Subsegmental primarily dependent linear density in the lower lobes most consistent with atelectasis. No air bronchograms. No effusions. HILAR AND MEDIASTINAL STRUCTURES: No identified masses or abnormal nodes. No obvious aneurysm. HEART AND VASCULAR STRUCTURES: No aneurysm. No pericardial effusion. UPPER ABDOMEN: See separate report of the CT of the abdomen. THYROID AND OTHER SOFT TISSUES: No masses. No adenopathy. BONES: No significant finding. HARDWARE: None in the chest. OTHER: No other significant findings. IMPRESSION: Subsegmental airspace disease in the lingula and lower lobes probably represents atelect asis although cannot exclude developing pneumonia. Clinical correlation is needed. TECHNICAL DOCUMENTATION: JOB ID: [id number] Quality ID # [id number]: Final reports with documentation of one or more dose reduction techniques (e.g., Au tomated exposure control, adjustment of the mA and/or kV according to patient size, use of iterative reconstruction technique) 2010 [employer]- All Rights Reserved
--- NOTE | 2017-11-05 10:47 | RADIOLOGY REPORT (SQ) ---
EXAM DESCRIPTION: CT ABD/PELVIS ORAL ONLY COMPLETED DATE/TIME: 11/05/2017 9:14 am REASON FOR STUDY: K56.609 R05 COUGH K56.609 UNSP INTESTNL OBST, UNSP TO PARTIAL VERSUS COMPLE COMPARISON: CT abdomen pelvis 10/09/2017, 02/23/2017 TECHNIQUE: CT scan of the abdomen and pelvis performed without intravenous contrast. Patient drank oral contrast. Images reviewed with lung, soft tissue, and bone windows. Reconstructed coronal and s agittal MPR images reviewed. All images stored on PACS. All CT scanners at this facility use dose modulation, iterative reconstruction, and/or weight based d osing when appropriate to reduce radiation dose to as low as reasonably achievable (ALARA). [facility]: Dose Right [facility]: CareDose [facility]: Dose Right [facility]: Teradose 4D [facility]: Smart [employer] RADIATION DOSE: CT Rad equipment meets quality standard of care and radiation dose reduction techniq ues were employed. CTDIvol: 22.0 - 30.5 mGy. DLP: 3819 mGy-cm.mGy. LIMITATIONS: None. FINDINGS: LOWER CHEST: Bibasilar bandlike consolidation is present likely atelectasis. Pneumonia co uld not be excluded. NON-CONTRASTED LIVER, SPLEEN, ADRENALS: Evaluation limited by lack of IV contrast. No identified sign ificant masses. PANCREAS: No masses. No peripancreatic inflammatory changes. GALLBLADDER: Surgically absent RIGHT KIDNEY AND URETER: No suspicious masses. 5 cm right upper pole and 3 cm right midpole renal co rtical cysts are present. No significant calcifications. There is moderate right hydronephrosis a nd hydroureter down to the level where the ureter crosses over the iliac vessels. Please note that t here is massive urinary bladder distention, this hydronephrosis could be related to urinary retention LEFT KIDNEY AND URETER: No suspicious masses. No significant calcifications. Mild left hydronephr osis and hydroureter could be related to urinary retention given massive urinary bladder distention AORTA AND RETROPERITONEUM: No aneurysm. No retroperitoneal masses or adenopathy. BOWEL AND PERITONEAL CAVITY: Patient drank oral contrast. No gross bowel obstruction. No free intra peritoneal air or fluid. APPENDIX: Not identified PELVIS, BLADDER, AND ABDOMINAL WALL:Massive urinary bladder distention, 20 cm in greatest craniocauda d dimension. Bladder protrudes up out of the pelvis almost to the level of the umbilicus. Patient is post ventral hernia repair. In the right lower quadrant, a peripheral rim enhancing fluid collection is present at the surgery site in the anterior abdominal wall, 8.6 x 3.6 cm in size. The re is overlying dehiscence of the skin incision. This may represent a seroma or hematoma or abscess. This is best shown on axial images 72 through 81. In the left lower quadrant, patient is post ventral hernia repair. Just deep to the skin incision, a small ill-defined fluid pocket with air bubbles is present 5 x 2.5 cm in size. This is best shown o n axial images 56-68 and could represent a small hematoma abscess or seroma. There is a tiny apical air bubble along the right para umbilical anterior abdominal wall axial image 49 in the superficial anterior abdominal wall fat of doubtful clinical significance. No pelvic free fluid. No pelvic adenopathy. Distended urinary bladder worrisome for urinary retenti on BONES: Multiple level degenerative disc changes in the lumbar spine OTHER: No other significant finding. IMPRESSION: Anterior abdominal wall fluid collections post ventral hernias surgery. These could rep resent seroma hematoma or abscess as above. Marked bladder distention with mild left and moderate right hydronephrosis and hydroureter. Findings worrisome for urinary retention Patient drank oral contrast. No CT evidence of bowel obstruction. COMMENT: Quality ID # 436: Final reports with documentation of one or more dose reduction techniques (e.g., Automated exposure control, adjustment of the mA and/or kV according to patient size, use of iterative reconstruction technique) TECHNICAL DOCUMENTATION: JOB ID: [id number] [employer]- All Rights Reserved
== END ==
LOC: RAD 10:52
PROVIDERS: ATTEND Family Medicine Geriatric Medicine
DX: K56.609 Unspecified intestinal obstruction, unspecified as to partial versus complete obstruction (principal); R05 Cough
CPT/HCPCS: 71250; 74176

== ENCOUNTER 2017-12-05 10:11 | Emergency (ER) | payer MEDICARE, OTHER ==
[2017-12-05 10:46] LABS: ABSOLUTE BASOPHILS # (AUTO) 0.1 10^3/uL (0.0-0.2); ABSOLUTE LYMPHOCYTES (AUTO) 2.1 10^3/uL (0.5-4.7); ABSOLUTE NEUT (AUTO) 16.7 10^3/uL (1.7-8.2); BASOPHILS % (AUTO) 0.3 % (0-2); HEMATOCRIT 35.5 % (36.0-47.0); LYMPHOCYTES % (AUTO) 10.7 % (13-45); MEAN CORPUSCULAR HEMOGLOBIN 27.3 pg (27.0-33.4); MEAN CORPUSCULAR HGB CONC 30.9 g/dL (32.0-36.0); MEAN CORPUSCULAR VOLUME 88 fl (80-97); PLATELET COUNT 618 10^3/uL (150-450); RED BLOOD COUNT 4.03 10^6/uL (3.72-5.28); RED CELL DISTRIBUTION WIDTH 14.9 % (11.5-14.0); TOTAL CELLS COUNTED % (AUTO) 100 %; WHITE BLOOD COUNT 19.9 10^3/uL (4.0-10.5)
[2017-12-05 10:48] LABS: PROTHROMBIN TIME 14.9 SEC (11.4-15.4)
[2017-12-05 10:49] LABS: PARTIAL THROMBOPLASTIN TIME 31.2 SEC (23.5-35.8)
[2017-12-05 10:50] LABS: VENOUS BLOOD BASE EXCESS -17.5 mmol/L; VENOUS BLOOD HCO3 9.4 mmol/L (20-32); VENOUS BLOOD PCO2 26.5 mmHg (35-63)
[2017-12-05] MEDS ORDERED: PIPERACILLIN/TAZOBACTAM 3.375 GM VIAL IV ONE (10:54)
[2017-12-05] MEDS ORDERED: NORMAL SALINE 1000 ML 1,000 ML IV ONE ×2 (10:54→13:30)
--- NOTE | 2017-12-05 10:59 | RADIOLOGY REPORT (SQ) ---
EXAM DESCRIPTION: CT HEAD WITHOUT COMPLETED DATE/TIME: 12/05/2017 10:42 am REASON FOR STUDY: bed 20 stroke alert COMPARISON: None. TECHNIQUE: Axial images acquired through the brain without intravenous contrast. Images reviewed wi th bone, brain and subdural windows. Images stored on PACS. All CT scanners at this facility use dose modulation, iterative reconstruction, and/or weight based d osing when appropriate to reduce radiation dose to as low as reasonably achievable (ALARA). [facility]: Dose Right [facility]: CareDose [facility]: Dose Right [facility]: Teradose 4D [facility]: Smart [employer] RADIATION DOSE: CT Rad equipment meets quality standard of care and radiation dose reduction techniq ues were employed. CTDIvol: 64.6 - 67.0 mGy. DLP: 2479 mGy-cm. mGy. LIMITATIONS: None. FINDINGS: VENTRICLES: Prominent. CEREBRUM: No masses. No hemorrhage. No midline shift. Areas of low density in the white matter mos t likely due to chronic micro-vascular ischemic change. No evidence for acute infarction. CEREBELLUM: No masses. No hemorrhage. No alteration of density. No evidence for acute infarction. EXTRAAXIAL SPACES: Mild age-related involutional change. No fluid collections. No masses. ORBITS AND GLOBE: No intra- or extraconal masses. Normal contour of globe without masses. CALVARIUM: No fracture. PARANASAL SINUSES: No fluid or mucosal thickening. SOFT TISSUES: No mass or hematoma. OTHER: No other significant finding. IMPRESSION: MILD CHRONIC CHANGES OF ATROPHY AND MICROVASCULAR ISCHEMIA. NO ACUTE PROCESS. EVIDENCE OF ACUTE STROKE: NO. COMMENT: Pertinent positive or negative findings of the imaging study reported as a CRITICAL EXAM laci MIX DO at10:53 on 12/05/2017. Category of Critical Exam: Stroke protocol. TECHNICAL DOCUMENTATION: JOB ID: [id number] Quality ID # [id number]: Final reports with documentation of one or more dose reduction techniques (e.g., Au tomated exposure control, adjustment of the mA and/or kV according to patient size, use of iterative reconstruction technique) 2010 [employer]- All Rights Reserved Reading location - IP/workstation name: [email or web address]
[2017-12-05 11:04] LABS: VENOUS BLOOD PH 7.17 (7.30-7.42)
[2017-12-05 11:09] LABS: ALANINE AMINOTRANSFERASE 29 U/L (9-52); ALBUMIN 3.1 g/dL (3.5-5.0); ALKALINE PHOSPHATASE 207 U/L (38-126); ASPARTATE AMINO TRANSFERASE 30 U/L (14-36); BILIRUBIN,DIRECT 0.3 mg/dL (0.0-0.4); BILIRUBIN,TOTAL 0.3 mg/dL (0.2-1.3); BLOOD UREA NITROGEN 116 mg/dL (7-20); GLUCOSE 87 mg/dL (75-110)
[2017-12-05] MEDS ORDERED: VANCOMYCIN HCL INJ 1000 MG VIAL IV ONE (11:10)
--- NOTE | 2017-12-05 11:11 | RADIOLOGY REPORT (SQ) ---
EXAM DESCRIPTION: CHEST SINGLE VIEW COMPLETED DATE/TIME: 12/05/2017 11:01 am REASON FOR STUDY: bed 20 stroke alert COMPARISON: 10/09/2017. EXAM PARAMETERS: NUMBER OF VIEWS: One view. TECHNIQUE: Single frontal radiographic view of the chest acquired. RADIATION DOSE: NA LIMITATIONS: None. FINDINGS: LUNGS AND PLEURA: No opacities, masses or pneumothorax. No pleural effusion. MEDIASTINUM AND HILAR STRUCTURES: No masses. Contour normal. HEART AND VASCULAR STRUCTURES: Heart normal in size. Normal vasculature. BONES: No acute findings. HARDWARE: None in the chest. OTHER: No other significant finding. IMPRESSION: NO ACUTE RADIOGRAPHIC FINDING IN THE CHEST. TECHNICAL DOCUMENTATION: JOB ID: [id number] [employer]- All Rights Reserved Reading location - IP/workstation name: [email or web address]
[2017-12-05 11:15] LABS: CHLORIDE 92 mmol/L (98-107); CREATINE KINASE < 20 U/L (30-135); SODIUM 138.8 mmol/L (137-145)
[2017-12-05 11:16] LABS: ANION GAP 40 (5-19); POTASSIUM 6.4 mmol/L (3.6-5.0)
[2017-12-05 11:17] LABS: CARBON DIOXIDE 7 mmol/L (22-30)
[2017-12-05 11:18] LABS: CREATINE KINASE MB 1.42 ng/mL (<4.55); TROPONIN I 0.026 ng/mL
[2017-12-05] MEDS: NORMAL SALINE 1000 ML 1,000 ML IV PRN ×2 (11:20→12:13)
[2017-12-05] MEDS ORDERED: INSULIN REG, HUMAN 100 UNIT/ML 3 ML VIAL (PYX) IV ONE (11:32)
[2017-12-05] MEDS ORDERED: SODIUM BICARBONATE 8.4% INJ 50 MEQ/50 ML DISP.SYRIN IV ONE (11:32)
[2017-12-05] MEDS ORDERED: DEXTROSE 5%-WATER 250 ML with NOREPINEPHRINE BITARTRATE 4 MG IV PRN ×2 (11:32)
[2017-12-05] MEDS ORDERED: CALCIUM GLUCONATE 1000 MG/10 ML INJ IV ONE (11:32)
[2017-12-05] MEDS ORDERED: DEXTROSE 50%-WATER 25 GM/50 ML DISP.SYRIN IV ONE (11:32)
[2017-12-05] MEDS ORDERED: NOREPINEPHRINE BITARTRATE INJ/PF 4 MG/4 ML SDV IV ONE (11:33)
[2017-12-05] MEDS ORDERED: NORMAL SALINE 1000 ML 1,000 ML IV PRN (12:41)
[2017-12-05 12:54] VITALS: BP 86/75
--- NOTE | 2017-12-05 13:15 | RADIOLOGY REPORT (SQ) ---
EXAM DESCRIPTION: CT ABD/PELVIS NO ORAL OR IV COMPLETED DATE/TIME: 12/05/2017 12:57 pm REASON FOR STUDY: sepsis COMPARISON: 11/05/2017 and 02/23/2017. TECHNIQUE: CT scan of the abdomen and pelvis performed without intravenous or oral contrast. Images reviewed with lung, soft tissue, and bone windows. Reconstructed coronal and sagittal MPR images revi ewed. All images stored on PACS. All CT scanners at this facility use dose modulation, iterative reconstruction, and/or weight based d osing when appropriate to reduce radiation dose to as low as reasonably achievable (ALARA). [facility]: Dose Right [facility]: CareDose [facility]: Dose Right [facility]: Teradose 4D [facility]: Smart [employer] RADIATION DOSE: CT Rad equipment meets quality standard of care and radiation dose reduction techniq ues were employed. CTDIvol: 20.2 mGy. DLP: 1180 mGy-cm.mGy. LIMITATIONS: None. FINDINGS: LOWER CHEST: No significant findings. No nodules or infiltrates. NON-CONTRASTED LIVER, SPLEEN, ADRENALS: Evaluation limited by lack of IV contrast. No identified sign ificant masses. PANCREAS: No masses. No peripancreatic inflammatory changes. GALLBLADDER: Surgically absent. RIGHT KIDNEY AND URETER: Cortical cysts. No suspicious masses. Assessment limited by lack of IV cont rast. No significant calcifications. No hydronephrosis or hydroureter. LEFT KIDNEY AND URETER: Cortical cyst No suspicious masses. Assessment limited by lack of IV contrast . No significant calcifications. No hydronephrosis or hydroureter. AORTA AND RETROPERITONEUM: No aneurysm. No retroperitoneal masses or adenopathy. BOWEL AND PERITONEAL CAVITY: No obvious masses or inflammatory changes. No free fluid. APPENDIX: Not visualized. PELVIS, BLADDER, AND ABDOMINAL WALL:Surgical changes in the anterior abdominal wall. Open soft tissu e defect. Fluid collection in the subcutaneous fatty tissues on the right side has decreased in size . Current measurement 2 x 6 cm with prior measurement 3.5 x 8.5 cm. Indistinct collection of gas on the left side of the soft tissue defect has also decreased in size. No free fluid in the pelvis. C atheter in the bladder. BONES: No significant findings. OTHER: No other significant finding. IMPRESSION: 1. SURGICAL CHANGES IN THE ANTERIOR ABDOMINAL WALL. OPEN SOFT TISSUE DEFECT. PREVIOUSLY SEEN COLLEC TIONS OF FLUID AND GAS HAVE IMPROVED SINCE THE PREVIOUS STUDY. 2. CORTICAL CYSTS IN BOTH KIDNEYS. NO OTHER SIGNIFICANT OR ACUTE PROCESS IN THE ABDOMEN OR PELVIS. COMMENT: Quality ID # 436: Final reports with documentation of one or more dose reduction techniques (e.g., Automated exposure control, adjustment of the mA and/or kV according to patient size, use of iterative reconstruction technique) TECHNICAL DOCUMENTATION: JOB ID: [id number] [employer]- All Rights Reserved Reading location - IP/workstation name: [email or web address]
--- NOTE | 2017-12-05 13:18 | RADIOLOGY REPORT (SQ) ---
EXAM DESCRIPTION: CHEST SINGLE VIEW COMPLETED DATE/TIME: 12/05/2017 1:01 pm REASON FOR STUDY: line placement COMPARISON: 12/05/2017 at 1051 hours. EXAM PARAMETERS: NUMBER OF VIEWS: One view. TECHNIQUE: Single frontal radiographic view of the chest acquired. RADIATION DOSE: NA LIMITATIONS: None. FINDINGS: LUNGS AND PLEURA: Mild elevation of the right hemidiaphragm. Mild basilar atelectasis. N o pneumothorax. MEDIASTINUM AND HILAR STRUCTURES: No masses. Contour normal. HEART AND VASCULAR STRUCTURES: Heart normal in size. Normal vasculature. BONES: No acute findings. HARDWARE: Central line on the right side with tip at the level of the right atrium. OTHER: No other significant finding. IMPRESSION: NO PNEUMOTHORAX FOLLOWING CENTRAL LINE PLACEMENT. NO ACUTE FINDINGS. TECHNICAL DOCUMENTATION: JOB ID: [id number] [employer]- All Rights Reserved Reading location - IP/workstation name: [email or web address]
[2017-12-05 13:29] LABS: APPEARANCE,URINE TURBID; BILIRUBIN,URINE NEGATIVE (NEGATIVE); COLOR,URINE YELLOW; GLUCOSE, URINE NEGATIVE (NEGATIVE); KETONES,URINE TRACE mg/dL (NEGATIVE); LEUKOCYTE ESTERASE,URINE LARGE (NEGATIVE); NITRITE,URINE NEGATIVE (NEGATIVE); PROTEIN,URINE >=500 mg/dL (NEGATIVE); UROBILINOGEN,URINE NEGATIVE mg/dL (<2.0)
[2017-12-05 13:51] LABS: BLOOD UREA NITROGEN 104 mg/dL (7-20); GLUCOSE 91 mg/dL (75-110)
[2017-12-05 13:57] LABS: CHLORIDE 101 mmol/L (98-107); SODIUM 142.7 mmol/L (137-145)
[2017-12-05 13:58] LABS: ANION GAP 34 (5-19); POTASSIUM 4.9 mmol/L (3.6-5.0)
[2017-12-05 13:59] LABS: CARBON DIOXIDE 8 mmol/L (22-30)
[2017-12-05] MEDS ORDERED: DEXTROSE 5%-WATER 1000 ML 1,000 ML with SODIUM BICARBONATE 150 MEQ IV PRN ×2 (14:05)
[2017-12-05] MEDS ORDERED: SODIUM BICARBONATE 8.4% INJ 50 MEQ/50 ML DISP.SYRIN ONE (14:17)
--- NOTE | 2017-12-05 14:55 | ER Document Report ---
ED General - General Chief Complaint: Altered Mental Status Stated Complaint: ALTERED MENTAL STATUS Time Seen by Provider: 12/05/17 10:26 TRAVEL OUTSIDE OF THE [place] IN LAST 30 DAYS: No - HPI Patient complains to provider of: Altered mental status Notes: Patient coming in for altered mental status. Patient was recently seen and transferred to [facility] after having a small bowel obstruction within a large hernia. Patient underwent abdominal surgery at that time currently has a wound VAC. Patient is currently a [facility]. Upon my evaluation patient is hypotensive with altered mental status GCS is approximately 10. Patient prior to my evaluation was taken to CAT scan for concern of stroke however upon entering the room patient is moving all 4 extremities looks to be altered more or less due to sepsis. Again HPI is limited I did review the past medical history and past visits - Related Data Allergies/Adverse Reactions: No Known Allergies Allergy (Unverified 02/24/17 01:21) Past Medical History - Social History Smoking Status: Former Smoker Family History: None Patient has suicidal ideation: No Patient has homicidal ideation: No - Past Medical History Cardiac Medical History: Reports: Hx Hypercholesterolemia Endocrine Medical History: Reports: Hx Diabetes Mellitus Type 2 Renal/ Medical History: Denies: Hx Peritoneal Dialysis Past Surgical History: Reports: Hx Cholecystectomy, Other - At least 4 abdominal hernia repairs last one with mesh. Review of Systems - Review of Systems -: Yes ROS unobtainable due to patient's medical condition - Altered mental status Physical Exam - Vital signs Vitals: Pulse Ox 100 12/05/17 10:20 Interpretation: Hypotensive, Tachycardic - General General appearance: Lethargic In distress: Moderate - HEENT Head: Normocephalic, Atraumatic Eyes: Normal Pupils: PERRL Mucous membranes: Dry - Respiratory Respiratory status: No respiratory distress Chest status: Nontender Breath sounds: Normal Chest palpation: Normal - Cardiovascular Rhythm: Regular Heart sounds: Normal auscultation Murmur: No - Abdominal Inspection: Other - Postsurgical changes with wound VAC in place with erythema around 1 of the wound size patient does have an open wound with gauze it looks to be dirty looks like this has not been changed in quite some time there is no purulent material expressed from this open wound. Distension: No distension Bowel sounds: Normal Tenderness: Nontender Organomegaly: No organomegaly - Genitourinary External exam: Normal - Back Back: Normal, Nontender - Extremities General upper extremity: Normal inspection, Nontender, Normal color, Normal ROM , Normal temperature General lower extremity: Normal inspection, Nontender, Normal color, Normal ROM , Normal temperature, Normal weight bearing. No: Margaret's sign - Neurological Neuro grossly intact: Yes Cognition: Normal Orientation: AAOx4 [place] Coma Scale Eye Opening: To Voice [place] Coma Scale Verbal: Incomprehensible Phyllis Coma Scale Motor: Localizes to Pain [place] Coma Scale Total: 10 Speech: Normal Motor strength normal: LUE, RUE, LLE, RLE Sensory: Normal - Psychological Associated symptoms: Confused - Skin Skin Temperature: Warm Skin Moisture: Dry Skin Color: Normal Course - Re-evaluation Re-evalutation: 12/05/17 14:47 Patient coming in for evaluation of altered mental status. Patient's initial GCS is 10. Patient underwent a head CT that was negative upon my evaluation concerning for underlying sepsis was definite concern for intraoral abdominal pathology started on vancomycin and Rocephin for antibiotic coverage. Cancino catheter was inserted with urine consistency of pus CT scan was performed showing improvement of fluid collections along the incision site. Patient was given 3 L of fluid central line placed without difficulty patient started on levo fed her pressure has improved patient otherwise mental state has also improved. Patient case was discussed with her hospitalist unfortunately due to lack of nephrology the patient's acute renal failure and also the patient for ICU admission discussed with Felipe Alfaro family is requesting specifically the to be transferred back to this facility. Discussed with Dr. Hernandez who agrees to set the patient in transfer. Patient was given hyperkalemia cocktail with bicarb insulin calcium gluconate and dextrose with repeat BMP showing improvement in her potassium. Patient also has slight improvement in her kidney function as well. Because of continuing acidosis with a bicarb initially at 7-8 start the patient on a bicarb drip. Patient still remains otherwise stable for transportation to the ICU. At this time patient is mentating maintaining her weight do not see a need to intubate the patient. - Vital Signs Vital signs: Temp Pulse Resp BP Pulse Ox 98.0 F 18 86/75 L 100 12/05/17 10:46 12/05/17 15:09 12/05/17 15:09 12/05/17 15:09 - Laboratory Result Diagrams: 12/05/17 10:25 12/05/17 13:12 Laboratory results interpreted by me: 12/05/17 12/05/17 12/05/17 10:25 10:25 10:25 WBC 19.9 H Hgb 11.0 L Hct 35.5 L MCHC 30.9 L RDW 14.9 H Plt Count 618 H Seg Neutrophils % 84.0 H Lymphocytes % 10.7 L Absolute Neutrophils 16.7 H VBG pH VBG pCO2 VBG HCO3 Potassium 6.4 H* Chloride 92 L Carbon Dioxide 7 L* Anion Gap 40 H BUN 116 H Creatinine 9.55 H Est GFR ( Amer) 5 L Est GFR (Non-Af Amer) 4 L Lactic Acid 10.7 H Calcium Alkaline Phosphatase 207 H Creatine Kinase < 20 L Total Protein 6.0 L Albumin 3.1 L Urine Protein Urine Ketones Urine Blood Ur Leukocyte Esterase 12/05/17 12/05/17 12/05/17 10:25 12:25 13:12 WBC Hgb Hct MCHC RDW Plt Count Seg Neutrophils % Lymphocytes % Absolute Neutrophils VBG pH 7.17 L* VBG pCO2 26.5 L VBG HCO3 9.4 L Potassium Chloride Carbon Dioxide 8 L* Anion Gap 34 H BUN 104 H Creatinine 8.52 H Est GFR ( Amer) 6 L Est GFR (Non-Af Amer) 5 L Lactic Acid Calcium 8.0 L Alkaline Phosphatase Creatine Kinase Total Protein Albumin Urine Protein >=500 H Urine Ketones TRACE H Urine Blood SMALL H Ur Leukocyte Esterase LARGE H Procedures - Central Line Right Internal jugular Consent obtained: Yes Central line pre-insertion: Sterile PPE donned Central line lumen type: Triple Anesthetic type: 1% Lidocaine mL's of anesthesia: 3 Ultrasound guided: Yes CM at insertion site: 20 Line secured with sutures: Yes Central line post-insertion: Blood return from lumens, Biopatch applied, Sutured , Sterile dressing applied, Position confirmed w/ CXR Number of attempts: 1 Complications: Yes Critical Care Note - Critical Care Note Total time excluding time spent on procedures (mins): 75 Comments: Multiple evaluations for severe sepsis time excludes procedures performed Discharge - Discharge Clinical Impression: Morbid obesity with BMI of 45.0-49.9, adult, Diabetes mellitus type 2 in obese , Severe sepsis, Possible abdominal wound infection Urinary tract infection Qualifiers: Urinary tract infection type: site unspecified Hematuria presence: without hematuria Qualified Code(s): N39.0 - Urinary tract infection, site not specified Hypotension Qualifiers: Hypotension type: unspecified hypotension type Qualified Code(s): I95.9 - Hypotension, unspecified Condition: Serious [facility]
--- NOTE | 2017-12-05 15:35 | ER Document Report ---
Sepsis - Sepsis Documentation Sepsis Patient: Yes - Vital Signs Vitals: Temp Pulse Resp BP Pulse Ox 95.3 F L 18 86/75 L 100 12/05/17 14:57 12/05/17 15:09 12/05/17 15:09 12/05/17 15:09 Interpretation: Hypotensive - Cardiovascular Peripheral Pulse Strength: Normal Capillary refill: < 3 seconds Rhythm: Regular Heart Sounds: Normal auscultation - Respiratory Breath Sounds: Clear Respiratory Status: No respiratory distress - Skin Skin Color: Normal
--- NOTE | 2017-12-05 21:37 | EKG REPORT ---
SEVERITY:- ABNORMAL ECG - SINUS RHYTHM LEFT ANTERIOR FASCICULAR BLOCK CONSIDER ANTEROSEPTAL INFARCT NONSPECIFIC T ABNORMALITIES, LATERAL LEADS : Confirmed by: Helena Vazquez 05-Dec-2017 21:37:21
== END 2017-12-05 14:59 | disposition short-term general hospital (02) ==
LOC: ER 10:11
PROC: 05HM33Z Insertion of Infusion Device into Right Internal Jugular Vein, Percutaneous Approach (ICD-10-PCS; principal; 2017-12-05)
DX: N39.0 Urinary tract infection, site not specified (principal); I95.9 Hypotension, unspecified; R41.82 Altered mental status, unspecified; E66.01 Morbid (severe) obesity due to excess calories; Z68.42 Body mass index [BMI] 45.0-49.9, adult; Z98.890 Other specified postprocedural states; Z87.891 Personal history of nicotine dependence; R40.2420 Glasgow coma scale score 9-12, unspecified time; E87.5 Hyperkalemia
CPT/HCPCS: 93005; 99291; 99292; 96375; 96365; 96366; 96367; 96368; 36415; 87040; 87086; 82553; 82962; 82550; 83690; 85025; 85610; 85730; 87077; 87088; 80048; 80053; 81001; 84484; 87186; 82803; 83605; 71045; 70450; 74176; 93010; 36556; C1751; J0610; J3490 ×3; A9270; J7060 ×2; J7030; J3370; J2543; J1815